=== PATIENT | female | born 2000 ===

== ENCOUNTER 2023-11-11 07:14 | Emergency (ER) | payer SELFPAY ==
[2023-11-11 07:19] VITALS: BP 128/88
[2023-11-11] MEDS: TYLENOL 500 MG PO (08:32)
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
[2023-11-11 10:49] VITALS: BP 126/74
== END 2023-11-11 11:00 | disposition home or self-care (01) ==
LOC: EMR 07:14
PROVIDERS: EMERGENCY PHYSICIAN Student in an Organized Health Care Education/Training Program
DX: F07.81 Postconcussional syndrome (principal); S09.90XA Unspecified injury of head, initial encounter; W22.8XXA Striking against or struck by other objects, initial encounter
CPT/HCPCS: 99284; 70450